=== PATIENT | male | born 1985 | race Caucasian/White ===

== ENCOUNTER 2021-09-02 01:41 | Observation (INO) | payer BC ==
[~2021-09-02] VITALS: Ht 170.2 cm; Wt 83.9 kg
[2021-09-02 02:05] LABS: HEMOGLOBIN 15.5 gm/dl (14.0-17.5); RED BLOOD COUNT 4.89 M/UL (4.20-5.50); WHITE BLOOD COUNT 11.6 K/UL (4.5-11.0)
[2021-09-02 02:37] LABS: BUN/CREATININE RATIO 12 (0-10)
--- NOTE | 2021-09-02 19:48 | NUR ---
CALLED DR BUCHANAN TO REPORT THAT POTASSIUM FLUIDS HAVE STOPPED PER ORDERS AND NO REPEAT ORDERED. GAVE ORDERS FOR BMP STAT AND K PROTOCOL. ORDERS PLACED.
[2021-09-02 22:03] LABS: BUN/CREATININE RATIO 8 (0-10)
[2021-09-03 04:01] LABS: BUN/CREATININE RATIO 7 (0-10)
== END 2021-09-03 17:32 | disposition home or self-care (01) ==
LOC: ER1 01:41 → PROG CARE 03:26 → CDU 03:26 → PROG CARE 03:26
PROVIDERS: Family Medicine; Internal Medicine; ADMIT Internal Medicine
DX: I49.5 Sick sinus syndrome (principal); E87.6 Hypokalemia; S00.83XA Contusion of other part of head, initial encounter; W19.XXXA Unspecified fall, initial encounter; Z20.822 Contact with and (suspected) exposure to COVID-19; I07.1 Rheumatic tricuspid insufficiency
CPT/HCPCS: ECHO; 36415; 70450; 71045; 73130; 80048; 80053; 80307; 81001; 82550; 82553; 83605; 83735; 83874; 84439; 84443; 84484; 85025; 85379; 93005; 93270; 93306; 99285; G0378; J1650; J3480; J7030; U0002

== ENCOUNTER → 2021-09-10 | Outpatient (CLI) | payer BC | LOC: CATH 09:42 | DX: R55 Syncope and collapse (principal) ==